=== PATIENT | female | born 1955 | race Caucasian/White ===

== ENCOUNTER → 2024-08-01 16:36 | Outpatient (REF) | payer OTHER, SELFPAY | LOC: HWRAD 16:36 | PROVIDERS: ATTENDING PHYSICIAN Physician Assistant Medical | DX: R07.81 Pleurodynia (principal) | CPT/HCPCS: 71101 ==

== ENCOUNTER → 2025-01-02 16:34 | Outpatient (REF) | payer OTHER, SELFPAY | LOC: HWRAD 16:34 | PROVIDERS: ATTENDING PHYSICIAN Physician Assistant Medical | DX: Z20.828 Contact with and (suspected) exposure to other viral communicable diseases (principal) | CPT/HCPCS: 71046 ==

== ENCOUNTER → 2025-07-08 17:13 | Outpatient (REF) | payer OTHER, SELFPAY | LOC: RAD 17:13 | PROVIDERS: ATTENDING PHYSICIAN Physician Assistant Medical | DX: R05.1 Acute cough (principal) | CPT/HCPCS: 71046 ==